=== PATIENT | male | born 1970 | race Native Hawaiian/Other Pacific Islander ===

== ENCOUNTER 2017-11-06 18:53 | Emergency (ER) | payer OTHER ==
[~2017-11-06] VITALS: Ht 180.3 cm; Wt 110.7 kg
== END 2017-11-06 19:53 | disposition home or self-care (01) ==
LOC: ED 18:53
DX: L03.311 Cellulitis of abdominal wall (principal); T21.22XA Burn of second degree of abdominal wall, initial encounter; X10.2XXA Contact with fats and cooking oils, initial encounter
CPT/HCPCS: 90715; 96372; 99283; J0696

== ENCOUNTER 2021-04-16 17:52 | Emergency (ER) | payer OTHER ==
[~2021-04-16] VITALS: Ht 180.3 cm; Wt 100.7 kg
[2021-04-16 18:45] LABS: PLATELET COUNT 375 K/uL (142-355)
[2021-04-16 19:00] LABS: POTASSIUM 4.1 mmol/L (3.6-5.2)
[2021-04-16 20:05] VITALS: BP 139/93; TEMP 98
== END 2021-04-16 20:05 | disposition home or self-care (01) ==
LOC: ED 17:52
PROVIDERS: Hospitalist
DX: L03.031 Cellulitis of right toe (principal); E11.65 Type 2 diabetes mellitus with hyperglycemia; W45.8XXA Other foreign body or object entering through skin, initial encounter; Y92.89 Other specified places as the place of occurrence of the external cause
CPT/HCPCS: 36415; 80048; 81002; 83605; 85027; 87040; 96360; 96365; 96375; 99284; J1815; J1885; J2270; J2405; J3370